=== PATIENT | female | born 1965 | race Two or more races ===

== ENCOUNTER 2024-03-09 09:20 | Inpatient (IN) | payer MEDICAID, OTHER ==
[~2024-03-09] VITALS: Ht 152.4 cm; Wt 66.0 kg
[2024-03-09 09:45] VITALS: PULSE 105; RESP 15; O2SAT 96
[2024-03-09 10:27] LABS: Basophils # (auto) 0 10 ^3/uL (0-0.2); Basophils % (auto) 0.3 % (0.0-2.0); Eosinophils # (auto) 0 10 ^3/uL (0-0.8); Eosinophils % (auto) 0.5 % (0.0-7.0); Hematocrit 43.5 % (36.0-46.0); Hemoglobin 14.7 g/dL (12.2-16.2); Lymphocytes # (auto) 1.9 10 ^3/uL (0.4-5.4); Lymphocytes % (auto) 30.1 % (10.0-50.0); Mean Corpuscular Hemoglobin 32.6 pg (28.0-32.0); Mean Corpuscular Hgb Conc. 33.8 g/dL (32.0-36.0); Mean Corpuscular Volume 96.4 fL (80.0-100.0); Monocytes # (auto) 1.2 10 ^3/uL (0-1.3); Neutrophils # (auto) 3.1 10 ^3/uL (1.6-8.6); Neutrophils % (auto) 49.6 % (37.0-80.0); Nucleated Red Blood Cells % 0.1 %; Red Blood Cells 4.51 10^6/uL (4.0-5.20); Red Cell Distribution Width 13.7 % (11.8-14.3); White Blood Cell 6.3 10^3/uL (4.4-10.8)
[2024-03-09 10:32] LABS: Chloride 107 mmol/L (98-107); Monocytes % (auto) 19.5 % (0.0-12.0); Potassium 4.1 mmol/L (3.5-5.1); Sodium 138 mmol/L (136-145)
[2024-03-09 10:33] LABS: Anion Gap 11 (5-15); Carbon Dioxide 20 mmol/L (20-30)
[2024-03-09 10:34] LABS: Calcium 9.6 mg/dL (8.5-10.1)
[2024-03-09 10:38] LABS: BUN/Creatinine Ratio 10.3 (10.0-20.0); Blood Urea Nitrogen 20 mg/dL (9-23); Glucose 161 mg/dL (74-106)
[2024-03-09 11:37] LABS: Urine Bacteria FEW /hpf (None Seen); Urine Blood Negative /uL (Negative); Urine Clarity Turbid (Clear); Urine Color Yellow (Yellow); Urine Hyaline Cast MOD /lpf (0 - 2); Urine Mucus FEW (None Seen); Urine Protein, UAD 1+ (Negative); Urine Specific Gravity 1.031 (1.001-1.035); Urine Urobilinogen Normal (Negative); Urine WBC 7 /hpf (0 - 5); Urine pH 5.5 (5.0-9.0)
[2024-03-09] MEDS: SODIUM CHLORIDE 0.9% 1,000 ML IV ONE ×2 (13:02)
[2024-03-09] MEDS: ONDANSETRON HCL 4 MG/2 ML VIAL IV ONE (13:04)
[2024-03-09] MEDS: MORPHINE SULFATE INJ 2 MG/ml SYRG IV ONE (13:17)
[2024-03-09] MEDS ORDERED: NITROGLYCERIN 0.4 MG SL TAB SL PRN (17:15)
[2024-03-09] MEDS ORDERED: ONDANSETRON HCL 4 MG/2 ML VIAL IV PRN (17:15)
[2024-03-09] MEDS ORDERED: DOCUSATE SOD 100 MG CAP PO PRN (17:15)
[2024-03-09] MEDS ORDERED: HYDROcodone-ACET 5/325MG TAB PO PRN (17:15)
[2024-03-09] MEDS ORDERED: ACETAMINOPHEN 325 MG TAB PO PRN (17:15)
[2024-03-09] MEDS ORDERED: MORPHINE SULFATE INJ 2 MG/ml SYRG IV PRN (17:15)
[2024-03-09] MEDS ORDERED: PRE5T PO (17:24)
[2024-03-09] MEDS ORDERED: MYCO250C4 PO (17:24)
[2024-03-09] MEDS ORDERED: MET25T PO (17:24)
[2024-03-09] MEDS ORDERED: TACR0.5C3 PO (17:24)
[2024-03-09] MEDS ORDERED: NYS5LQ PO (17:24)
[2024-03-09] MEDS ORDERED: AZIT-43 PO (17:24)
[2024-03-09] MEDS ORDERED: AMLO1TAB22 PO (17:24)
[2024-03-09] MEDS ORDERED: TACR1CAP4 PO (17:24)
[2024-03-09] MEDS ORDERED: FAMO-12 PO (17:24)
[2024-03-09] MEDS ORDERED: METF-370 PO (17:24)
[2024-03-09] MEDS ORDERED: BACDST PO (17:35)
[2024-03-09] MEDS ORDERED: PRAV20TA3 PO (17:35)
[2024-03-09] MEDS: SODIUM CHLORIDE 0.9% 1,000 ML IV SCH (18:26)
[2024-03-09] MEDS: NYSTATIN (MOUTH-THROAT) 500,000 UNITS/5 ML SUSP MT SCH (19:05)
[2024-03-09 19:30] LABS: COVID19 ANTIGEN SOFIA FIA NEGATIVE (NEGATIVE)
[2024-03-09 20:25] VITALS: BP 118/79; PULSE 102; RESP 18; TEMP 98.1; O2SAT 97
[2024-03-09 20:33] VITALS: PULSE 103
[2024-03-09 20:43] VITALS: BP 118/79; PULSE 102; RESP 18; TEMP 98.1; O2SAT 97
[2024-03-09] MEDS: MYCOPHENOLATE 250 MG CAP PO SCH (20:47)
[2024-03-09] MEDS ORDERED: DEXTROSE (50%) 50ML SYRG IV PRN (21:30)
[2024-03-09] MEDS: PRAVASTATIN SODIUM 20 MG TAB PO SCH (21:52)
[2024-03-09] MEDS: InsuLIN REG 1unit/0.01ml Soln (100units/ml) SC SCH (21:53)
[2024-03-09] MEDS: ACCU-CHEK COMFORT CURVE STRIP VI SCH (21:53)
[2024-03-09] MEDS: TACROLIMUS 1 MG CAP PO SCH (21:54)
[2024-03-09] MEDS: TACROLIMUS 0.5 MG CAP PO SCH (21:55)
[2024-03-09] MEDS: METOPROLOL TARTRATE 25 MG TAB PO SCH (21:58)
[2024-03-09] MEDS ORDERED: metFORMIN HYDROCHLORIDE 500 MG TAB PO SCH (22:00)
[2024-03-10] VITALS (7 sets, daily range): BP systolic 115–154; BP diastolic 52–89; PULSE 86–102; RESP 14–19; TEMP 97.5–98.2; O2SAT 94–100
[2024-03-10] MEDS: InsuLIN REG 1unit/0.01ml Soln (100units/ml) SC SCH (06:35)
[2024-03-10 07:51] LABS: Basophils # (auto) 0 10 ^3/uL (0-0.2); Basophils % (auto) 0.2 % (0.0-2.0); Eosinophils # (auto) 0 10 ^3/uL (0-0.8); Eosinophils % (auto) 0.6 % (0.0-7.0); Hemoglobin 12.7 g/dL (12.2-16.2); Lymphocytes # (auto) 2.1 10 ^3/uL (0.4-5.4); Lymphocytes % (auto) 45.5 % (10.0-50.0); Mean Corpuscular Hemoglobin 32.1 pg (28.0-32.0); Mean Corpuscular Hgb Conc. 32.5 g/dL (32.0-36.0); Mean Corpuscular Volume 98.6 fL (80.0-100.0); Monocytes # (auto) 0.6 10 ^3/uL (0-1.3); Monocytes % (auto) 13.8 % (0.0-12.0); Neutrophils # (auto) 1.8 10 ^3/uL (1.6-8.6); Neutrophils % (auto) 39.9 % (37.0-80.0); Nucleated Red Blood Cells % 0.3 %; Red Blood Cells 3.96 10^6/uL (4.0-5.20); Red Cell Distribution Width 14.2 % (11.8-14.3); White Blood Cell 4.6 10^3/uL (4.4-10.8)
[2024-03-10 08:00] LABS: Alanine Aminotransferase 11 U/L (7-40); Albumin 3.8 g/dL (3.2-4.8); Alkaline Phosphatase 54 U/L (46-116); Anion Gap 7 (5-15); Aspartate Aminotransferase 13 U/L (13-40); BUN/Creatinine Ratio 11.7 (10.0-20.0); Bilirubin, Total 0.5 mg/dL (0.2-1.0); Blood Urea Nitrogen 12 mg/dL (9-23); Calcium 8.2 mg/dL (8.7-10.4); Carbon Dioxide 22 mmol/L (20-30); Chloride 112 mmol/L (98-107); Glucose 86 mg/dL (74-106); Potassium 4.4 mmol/L (3.5-5.1); Sodium 141 mmol/L (136-145); Total Protein 5.8 g/dL (5.7-8.2)
[2024-03-10] MEDS: AZITHROMYCIN 250 MG TAB PO SCH (09:48)
[2024-03-10] MEDS: predniSONE 5 MG TAB PO SCH (09:48)
[2024-03-10] MEDS: FAMOTIDINE 20 MG TAB PO SCH (09:49)
[2024-03-10] MEDS: amLODIPine BESYLATE 5 MG TAB PO SCH (09:50)
[2024-03-10] MEDS: metroNIDAZOLE 500MG/100ML 100 ML IV SCH (13:56)
[2024-03-11] VITALS (7 sets, daily range): BP systolic 119–150; BP diastolic 70–82; PULSE 83–91; RESP 14–18; TEMP 97.7–98.3; O2SAT 94–97
[2024-03-11] MEDS ORDERED: METR-344 PO (14:05)
[2024-03-11] MEDS ORDERED: ZOFR4T PO (14:05)
[2024-03-12] MEDS ORDERED: FAMOTIDINE 20 MG TAB PO SCH (07:00)
[2024-03-13] MEDS ORDERED: SULFAMETHOX W/TRIMETH(800/160MG) DS TAB PO SCH (10:00)
== END 2024-03-11 18:53 | disposition home or self-care (01) | DRG 249 ==
LOC: ER 09:24 → TELE 17:24 → TELE-WESTW 20:25
PROVIDERS: ADMIT Nurse Practitioner Family; ATTEND Internal Medicine
DX: K52.9 Noninfective gastroenteritis and colitis, unspecified (principal); N17.0 Acute kidney failure with tubular necrosis; Z94.2 Lung transplant status; N39.0 Urinary tract infection, site not specified; Z20.822 Contact with and (suspected) exposure to COVID-19; I10 Essential (primary) hypertension; E11.65 Type 2 diabetes mellitus with hyperglycemia; E86.0 Dehydration; Z88.8 Allergy status to other drugs, medicaments and biological substances; Z86.711 Personal history of pulmonary embolism; Z86.718 Personal history of other venous thrombosis and embolism; Z90.710 Acquired absence of both cervix and uterus
CPT/HCPCS: 36415; 74176; 80048; 80053; 81001; 82270; 82962; 85025; 85048; 87045; 87426; 87427; 87493; 93005; G0378; J1815; J2405; J3490; J7507; J7517

== ENCOUNTER 2024-03-18 10:02 | Inpatient (IN) | payer MEDICAID ==
[~2024-03-18] VITALS: Ht 152.4 cm; Wt 66.5 kg
[~2024-03-18 10:02] MED LIST: AMLO1TAB22 PO; AZIT-43 PO; BACDST PO; FAMO-12 PO; MET25T PO; METF-370 PO; METR-344 PO; MYCO250C4 PO; NYS5LQ PO; PRAV20TA3 PO; PRE5T PO; TACR0.5C3 PO; TACR1CAP4 PO; ZOFR4T PO
[2024-03-18] MEDS: ONDANSETRON HCL 4 MG/2 ML VIAL IV ONE (10:56)
[2024-03-18] MEDS: SODIUM CHLORIDE 0.9% 1,000 ML IV ONE (10:56)
[2024-03-18] MEDS: MORPHINE SULFATE 4 MG/ML SYR/VIAL IV ONE (10:57)
[2024-03-18 11:10] LABS: Hematocrit 43.4 % (36.0-46.0); Hemoglobin 14.4 g/dL (12.2-16.2); Mean Corpuscular Hemoglobin 31.8 pg (28.0-32.0); Mean Corpuscular Hgb Conc. 33.1 g/dL (32.0-36.0); Mean Corpuscular Volume 96.3 fL (80.0-100.0); Red Blood Cells 4.51 10^6/uL (4.0-5.20); Red Cell Distribution Width 13.9 % (11.8-14.3); White Blood Cell 6.5 10^3/uL (4.4-10.8)
[2024-03-18 11:11] LABS: Basophils % (manual) 0 (0.0-2.0); Blast Cells 0; Metamyelocytes % 0; Myelocytes % 0; Promyelocytes % 0
[2024-03-18 11:19] LABS: Chloride 108 mmol/L (98-107); Potassium 4.2 mmol/L (3.5-5.1); Sodium 135 mmol/L (136-145)
[2024-03-18 11:21] LABS: Anion Gap 7 (5-15); Calcium 9.6 mg/dL (8.7-10.4); Carbon Dioxide 20 mmol/L (20-30)
[2024-03-18 11:26] LABS: BUN/Creatinine Ratio 9.6 (10.0-20.0); Blood Urea Nitrogen 25 mg/dL (9-23); Glucose 146 mg/dL (74-106)
[2024-03-18 11:44] LABS: Band Neutrophils % (manual) 2; Eosinophils % (manual) 3 (0-7); Lymphocytes % (manual) 29 (10.0-50.0); Monocytes % (manual) 8 (0-12); Platelet Estimate Adequate; Reactive Lymphocytes 8
[2024-03-18 14:33] LABS: Urine Bacteria None Seen /hpf (None Seen)
[2024-03-18 14:41] LABS: Urine Blood Negative /uL (Negative); Urine Clarity Clear (Clear); Urine Color Yellow (Yellow); Urine Protein, UAD TRACE (Negative); Urine Specific Gravity 1.014 (1.001-1.035); Urine Urobilinogen Normal (Negative); Urine WBC 1 /hpf (0 - 5); Urine pH 5.5 (5.0-9.0)
[2024-03-18] MEDS ORDERED: NITROGLYCERIN 0.4 MG SL TAB SL PRN (15:45)
[2024-03-18] MEDS ORDERED: MORPHINE SULFATE INJ 2 MG/ml SYRG IV PRN (15:45)
[2024-03-18] MEDS ORDERED: DOCUSATE SOD 100 MG CAP PO PRN (15:45)
[2024-03-18] MEDS: SODIUM CHLORIDE 0.9% 1,000 ML IV SCH (16:05)
[2024-03-18 17:53] VITALS: BP 122/74; PULSE 94; RESP 16; TEMP 97.6; O2SAT 97
[2024-03-18 18:00] VITALS: BP 122/74; PULSE 94; RESP 16; TEMP 97.6; O2SAT 97
[2024-03-18] MEDS ORDERED: PRAVASTATIN SODIUM 20 MG TAB PO SCH (18:00)
[2024-03-18] MEDS ORDERED: EMPA1TAB PO (18:08)
[2024-03-18] MEDS ORDERED: ALBU0.084 NEB (18:09)
[2024-03-18] MEDS: ONDANSETRON HCL 4 MG/2 ML VIAL IV PRN (18:38)
[2024-03-18 20:00] VITALS: PULSE 75; RESP 18; O2SAT 96
[2024-03-18 21:00] VITALS: BP 128/65; PULSE 96; RESP 16; TEMP 97.7; O2SAT 97
[2024-03-18] MEDS: MYCOPHENOLATE 250 MG CAP PO SCH (22:00)
[2024-03-18] MEDS: metroNIDAZOLE 500MG/100ML 100 ML IV SCH (22:52)
[2024-03-18] MEDS: PRAVASTATIN SODIUM 20 MG TAB PO SCH (22:56)
[2024-03-18] MEDS: TACROLIMUS 1 MG CAP PO SCH (22:57)
[2024-03-18] MEDS: FAMOTIDINE 20 MG TAB PO SCH (23:04)
[2024-03-18] MEDS: METOPROLOL TARTRATE 25 MG TAB PO SCH (23:05)
[2024-03-18] MEDS: DICYCLOMINE HCL 10 MG CAP PO SCH (23:15)
[2024-03-19] VITALS (7 sets, daily range): BP systolic 117–137; BP diastolic 62–85; PULSE 79–99; RESP 16–18; TEMP 97.3–98; O2SAT 96–98
[2024-03-19 06:43] LABS: Hematocrit 38.8 % (36.0-46.0); Hemoglobin 12.9 g/dL (12.2-16.2); Mean Corpuscular Hemoglobin 32.5 pg (28.0-32.0); Mean Corpuscular Hgb Conc. 33.3 g/dL (32.0-36.0); Mean Corpuscular Volume 97.7 fL (80.0-100.0); Red Blood Cells 3.97 10^6/uL (4.0-5.20); Red Cell Distribution Width 14.1 % (11.8-14.3); White Blood Cell 4.5 10^3/uL (4.4-10.8)
[2024-03-19 07:16] LABS: Alanine Aminotransferase 17 U/L (7-40); Albumin 3.4 g/dL (3.2-4.8); Alkaline Phosphatase 36 U/L (46-116); Anion Gap 10 (5-15); Aspartate Aminotransferase 21 U/L (13-40); BUN/Creatinine Ratio 12.4 (10.0-20.0); Blood Urea Nitrogen 20 mg/dL (9-23); Calcium 8.5 mg/dL (8.7-10.4); Carbon Dioxide 16 mmol/L (20-30); Chloride 112 mmol/L (98-107); Glucose 78 mg/dL (74-106); Potassium 4.3 mmol/L (3.5-5.1); Sodium 138 mmol/L (136-145)
[2024-03-19 07:17] LABS: Bilirubin, Total 0.3 mg/dL (0.2-1.0); Total Protein 5.2 g/dL (5.7-8.2)
[2024-03-19 07:23] LABS: Basophils % (manual) 0 (0.0-2.0); Blast Cells 0; Eosinophils % (manual) 0 (0-7); Metamyelocytes % 0; Myelocytes % 0; Promyelocytes % 0; Reactive Lymphocytes 0
[2024-03-19 09:00] LABS: Band Neutrophils % (manual) 2; Lymphocytes % (manual) 27 (10.0-50.0); Monocytes % (manual) 14 (0-12); Platelet Estimate Adequate; RBC Morphology Normal
[2024-03-19] MEDS: predniSONE 5 MG TAB PO SCH (10:34)
[2024-03-19] MEDS: amLODIPine BESYLATE 5 MG TAB PO SCH (10:35)
[2024-03-19] MEDS: MORPHINE SULFATE INJ 2 MG/ml SYRG IV PRN (12:50)
[2024-03-19] MEDS: MYCOPHENOLATE 500 MG TAB PO SCH (21:46)
[2024-03-19] MEDS: TACROLIMUS 1 MG CAP PO SCH (21:47)
[2024-03-19] MEDS: FAMOTIDINE 20 MG TAB PO SCH (21:50)
[2024-03-20] VITALS (8 sets, daily range): BP systolic 103–152; BP diastolic 68–87; PULSE 74–91; RESP 17–18; TEMP 97.3–98.2; O2SAT 96–98
[2024-03-20 07:00] LABS: Basophils # (auto) 0 10 ^3/uL (0-0.2); Basophils % (auto) 0.3 % (0.0-2.0); Eosinophils # (auto) 0.1 10 ^3/uL (0-0.8); Eosinophils % (auto) 1.8 % (0.0-7.0); Hematocrit 39.3 % (36.0-46.0); Hemoglobin 13.1 g/dL (12.2-16.2); Lymphocytes # (auto) 1.2 10 ^3/uL (0.4-5.4); Lymphocytes % (auto) 34.4 % (10.0-50.0); Mean Corpuscular Hemoglobin 32.7 pg (28.0-32.0); Mean Corpuscular Hgb Conc. 33.3 g/dL (32.0-36.0); Mean Corpuscular Volume 98.1 fL (80.0-100.0); Monocytes # (auto) 0.7 10 ^3/uL (0-1.3); Monocytes % (auto) 18.2 % (0.0-12.0); Neutrophils # (auto) 1.6 10 ^3/uL (1.6-8.6); Neutrophils % (auto) 45.3 % (37.0-80.0); Red Blood Cells 4.01 10^6/uL (4.0-5.20); White Blood Cell 3.6 10^3/uL (4.4-10.8)
[2024-03-20 07:11] LABS: Magnesium 1.2 mg/dL (1.6-2.6)
[2024-03-20] MEDS: TACROLIMUS 0.5 MG CAP PO SCH (10:12)
[2024-03-20] MEDS: ACETAMINOPHEN 325 MG TAB PO PRN (10:14)
[2024-03-20] MEDS: cefTRIAXone 1GM/50ML D5W 50 ML IV ONE (17:18)
[2024-03-21] VITALS (8 sets, daily range): BP systolic 117–151; BP diastolic 74–90; PULSE 74–97; RESP 17–18; TEMP 97.7–98; O2SAT 92–98
[2024-03-21 07:43] LABS: Alanine Aminotransferase 16 U/L (7-40); Albumin 3.2 g/dL (3.2-4.8); Alkaline Phosphatase 35 U/L (46-116); Anion Gap 13 (5-15); Aspartate Aminotransferase 18 U/L (13-40); BUN/Creatinine Ratio 6.5 (10.0-20.0); Bilirubin, Total 0.2 mg/dL (0.2-1.0); Blood Urea Nitrogen 6 mg/dL (9-23); Calcium 8.5 mg/dL (8.7-10.4); Carbon Dioxide 13 mmol/L (20-30); Chloride 113 mmol/L (98-107); Glucose 85 mg/dL (74-106); Magnesium 1.1 mg/dL (1.6-2.6); Sodium 139 mmol/L (136-145); Total Protein 5.1 g/dL (5.7-8.2)
[2024-03-21] MEDS: cefTRIAXone 1GM/50ML D5W 50 ML IV SCH (09:05)
[2024-03-21] MEDS: LOPERAMIDE HCL 2 MG CAP/TAB PO PRN (14:55)
[2024-03-21] MEDS: HYDROmorphone HCL 2 MG/ML VL/or syr IV PRN (20:42)
[2024-03-22 05:00] VITALS: BP 139/79; PULSE 86; RESP 17; TEMP 97.8; O2SAT 96
[2024-03-22 08:00] VITALS: PULSE 79; RESP 16; O2SAT 98
[2024-03-22 08:56] VITALS: BP 141/92; PULSE 79; RESP 16; TEMP 97.5; O2SAT 98
[2024-03-22 13:00] VITALS: BP 133/71; PULSE 83; RESP 15; TEMP 97.7; O2SAT 95
[2024-03-22 17:00] VITALS: BP 139/78; PULSE 79; RESP 20; TEMP 97.9; O2SAT 95
[2024-03-22 21:00] VITALS: BP 144/84; PULSE 100; RESP 18; TEMP 98.3; O2SAT 97
[2024-03-23] VITALS (7 sets, daily range): BP systolic 122–145; BP diastolic 69–82; PULSE 80–91; RESP 16–18; TEMP 97.6–98.3; O2SAT 96–100
== END 2024-03-23 20:50 | disposition short-term general hospital (02) ==
LOC: ER 10:02 → OVERFLOW 15:36 → CENTRAL 15:53
PROVIDERS: ADMIT Internal Medicine; ATTEND Internal Medicine
DX: K80.00 Calculus of gallbladder with acute cholecystitis without obstruction (principal); N17.0 Acute kidney failure with tubular necrosis; A04.72 Enterocolitis due to Clostridium difficile, not specified as recurrent; Z94.2 Lung transplant status; K76.0 Fatty (change of) liver, not elsewhere classified; E11.9 Type 2 diabetes mellitus without complications; E87.1 Hypo-osmolality and hyponatremia; I10 Essential (primary) hypertension; N20.0 Calculus of kidney; E66.9 Obesity, unspecified; Z88.8 Allergy status to other drugs, medicaments and biological substances; Z79.899 Other long term (current) drug therapy; Z90.710 Acquired absence of both cervix and uterus; Z86.718 Personal history of other venous thrombosis and embolism; Z86.711 Personal history of pulmonary embolism; Z79.60 Long term (current) use of unspecified immunomodulators and immunosuppressants; Z85.42 Personal history of malignant neoplasm of other parts of uterus; Z68.28 Body mass index [BMI] 28.0-28.9, adult
CPT/HCPCS: 36415; 76700; 80048; 80053; 80197; 81001; 83690; 83735; 84443; 85007; 85025; 85027; 85048; 87081; 87493; 93005; 96361; 96374; 96375; 96376; 99291; G0378; J2405; J3490; J7507; J7517